=== PATIENT | male | born 1960 | race Caucasian/White ===

== ENCOUNTER → 2017-08-30 10:36 | Outpatient (CLI) | payer BC, SELFPAY ==
--- NOTE | 2017-08-30 10:59 | XR_ITS ---
XR cervical spine 5V Ordering Physician: Blas Carrillo MD Patient Age: 57 years: Male neck pain neck injury with 15. HISTORY: ITS.REASON: DISORDER OF NECK TECHNIQUE: Five-view cervical spine series COMPARISON :None FINDINGS C6/7 degenerative disc space narrowing most pronounced at this level with diffuse posterior hypertrophic ridging . Spurring yielding bilateral foraminal encroachment most pronounced at the left foramen C5/6. Degenerative disc space narrowing most evident to the left. Spurring and uncovertebral joint hypertrophy most evident to the left encroach upon the left neural foramen. C3/4. Mild posterior hypertrophic ridging also noted at this level. Only minor foraminal encroachment. At C3/4 C1 /C2 satisfactory. Nonspecific straightening cervical spine. Prevertebral soft tissues normal. Degenerative facet changes most notable at C6/7 level. Apices the lungs are clear. IMPRESSION: ======= Degenerative disc changes and cervical spondylosis most pronounced at C6/7, & leftward at C5/6\ Posterior hypertrophic ridging at these levels., As well as mild diffuse posterio hypertrophic r ridging C3/4 Spurs healed notable encroachment most evident at left C6/7 foramen, followed by C5/6 f left foramen .. Moderate spurring at right foramen C6/7 ... Developing Degenerative facet changes noted at C6/7 level
== END ==
PROVIDERS: PCP Family Medicine; Visit Provider Family Medicine
DX: M53.82 Other specified dorsopathies, cervical region (principal)
CPT/HCPCS: 72050

== ENCOUNTER → 2017-09-19 16:11 | Outpatient (CLI) | payer BC, SELFPAY ==
--- NOTE | 2017-09-19 16:14 | MR_ITS ---
MR cervical spine wo con COMPARISON: Cervical spine plain films 08/30/2017 HISTORY: Generalized neck pain multilevel degenerative changes seen on plain films of cervical spine TECHNIQUE: Standard sagittal and axial sequences were performed along with a myelogram sequence. FINDINGS: There is straightening of normal curvature suggesting muscle spasm. C1-C7 appear intact. The marrow signal is normal in all cervical vertebrae. There is mild to moderate anterior ossific spurring at the C5-6 and C6-7 levels. There is a broad-based left paracentral and lateral disc bulge at the C3-4 level somewhat compromising the left neural foramen at this level. There is no contouring of the cervical cord. The C4-5 disc appears normal. There is a broad-based central disc protrusion C5-6 which abuts but does not contour the cervical cord and causes mild neural foraminal compromise bilaterally. There is very mild diffuse disc bulge C6-7 which is not abut the cervical cord. And causes no significant neural foraminal compromise. There is no significant abnormality of the myelogram sequence noted. The cervical cord appears normal throughout. IMPRESSION: Mild disc bulges at the C3-4, C5-6 and C6-7 levels most prominent at the C5-6 level but there is no definite contouring of the cervical cord at any of these levels.
== END ==
PROVIDERS: PCP Family Medicine; Visit Provider Family Medicine
DX: M53.82 Other specified dorsopathies, cervical region (principal); M50.90 Cervical disc disorder, unspecified, unspecified cervical region; M47.812 Spondylosis without myelopathy or radiculopathy, cervical region; M46.92 Unspecified inflammatory spondylopathy, cervical region
CPT/HCPCS: 72141; 76376